=== PATIENT | female | born 1985 | race Hispanic/Latino ===

== ENCOUNTER 2018-02-14 21:46 | Emergency (ER) | payer OTHER ==
[2018-02-14] MEDS ORDERED: ACETAMINOPHEN EXTRA STRENGTH 500 MG TABLET ONE (22:11)
[2018-02-14] MEDS ORDERED: TETANUS/DIPHTHERIA TOXOID [ADULT] 0.5 ML VIAL IM ONE (22:36)
== END 2018-02-14 22:50 | disposition home or self-care (01) ==
LOC: EDH 21:46
DX: S61.232A Puncture wound without foreign body of right middle finger without damage to nail, initial encounter (principal); Y04.1XXA Assault by human bite, initial encounter; Y93.89 Activity, other specified; Y92.098 Other place in other non-institutional residence as the place of occurrence of the external cause; Y99.8 Other external cause status
CPT/HCPCS: 73130; 81025; 90471; 90714

== ENCOUNTER 2022-08-27 17:40 | Emergency (ER) | payer BC ==
[~2022-08-27] VITALS: Ht 170.2 cm; Wt 145.1 kg
[~2022-08-27 17:40] MED LIST: CLIN-141 PO; METF-444 PO; METO-296 PO; ONDA4TAB10 PO
[2022-08-27 18:18] LABS: BASOPHILS % (AUTO) 0.3 % (0.0-5.0); EOSINOPHILS % (AUTO) 1.2 % (0.0-8.0); HEMATOCRIT 42.4 % (36-48); LYMPHOCYTES % (AUTO) 24.8 % (21.0-51.0); MEAN CORPUSCULAR HEMOGLOBIN 30.2 pg (27.0-33.0); MEAN CORPUSCULAR HGB CONC 33.7 g/dL (32.0-36.0); MEAN CORPUSCULAR VOLUME 89.6 fL (79-99); MONOCYTES % (AUTO) 6.1 % (3.0-13.0); PLATELET COUNT (AUTO) 342 K/uL (130-400); RED BLOOD CELL COUNT(AUTO) 4.73 MIL/uL (4.00-5.50); RED CELL DISTRIBUTION WIDTH 12.1 % (11.0-15.5); WHITE BLOOD COUNT (AUTO) 18.8 K/uL (4.8-10.8)
[2022-08-27 18:28] LABS: CARBON DIOXIDE 29 mmol/L (21-32); CHLORIDE 95 mmol/L (101-111); CREATININE 0.9 mg/dL (0.5-1.5); GLOMERULAR FILTR. RATE CALC 74 mL/min (>60); GLUCOSE,RANDOM 284 mg/dL (70-105); POTASSIUM 3.8 mmol/L (3.5-5.1); SODIUM SERUM 132 mmol/L (136-145); UREA NITROGEN, BLOOD 8 mg/dL (7-18)
[2022-08-27 18:38] LABS: ALANINE AMINOTRANSFERASE 22 U/L (12-78); ALBUMIN 3.3 g/dL (3.5-5.0); ASPARTATE AMINOTRANSFERASE 16 U/L (10-37); CREATINE KINASE, TOTAL 42 U/L (21-232); MYOGLOBIN 21 ng/mL (10-92)
[2022-08-27 21:46] LABS: AMPHET/METH SCREEN,URINE NEGATIVE (NEGATIVE); BARBITURATE SCREEN, URINE NEGATIVE (NEGATIVE); BENZODIAZEPINES SCREEN,URINE NEGATIVE (NEGATIVE); CANNABINOID SCREEN,URINE POSITIVE (NEGATIVE); COCAINE SCREEN,URINE NEGATIVE (NEGATIVE); OPIATE SCREEN,URINE NEGATIVE (NEGATIVE); PHENCYCLIDINE SCREEN,URINE NEGATIVE (NEGATIVE)
[2022-08-27 21:48] LABS: HCG,QUALITATIVE URINE NEGATIVE (NEGATIVE)
[2022-08-27] MEDS ORDERED: IOHEXOL 350 MG/ML 100ML INFUS..BTL IV ONE (21:56)
[2022-08-27 22:00] LABS: APPEARANCE,URINE CLOUDY (CLEAR); BILIRUBIN,URINE NEGATIVE (NEGATIVE); COLOR,URINE LIGHT-YELLOW (YELLOW); GLUCOSE, URINE (UA) >=1000 mg/dL (NEGATIVE); KETONES,URINE NEGATIVE (NEGATIVE); LEUKOCYTE ESTERASE ,URINE 500 Leu/uL (NEGATIVE); NITRATE,URINE NEGATIVE (NEGATIVE); OCCULT BLOOD,URINE LARGE (NEGATIVE); PH,URINE 5.5 (5.0-8.0); PROTEIN,URINE NEGATIVE (NEGATIVE); UROBILINOGEN,URINE 0.2 mg/dL (0.2-1.0)
[2022-08-27 22:05] LABS: BACTERIA,URINE FEW /HPF (None Seen); MUCUS,URINE RARE LPF (None Seen); SQUAMOUS EPITHELIAL CELL,UR MOD /HPF (0-2); WBC,URINE 26-50 /HPF (0-1)
[2022-08-27] MEDS ORDERED: CEFTRIAXONE 1G VIAL IVP ONE (22:30)
[2022-08-28 02:08] VITALS: BP 135/88
== END 2022-08-28 02:10 | disposition left against medical advice (07) ==
LOC: EDH 17:40
DX: R20.0 Anesthesia of skin (principal); R53.1 Weakness; R11.2 Nausea with vomiting, unspecified; R42 Dizziness and giddiness; Z20.822 Contact with and (suspected) exposure to COVID-19; E11.9 Type 2 diabetes mellitus without complications; E78.00 Pure hypercholesterolemia, unspecified; I10 Essential (primary) hypertension; F17.200 Nicotine dependence, unspecified, uncomplicated; Z90.49 Acquired absence of other specified parts of digestive tract; Z79.84 Long term (current) use of oral hypoglycemic drugs; Z79.899 Other long term (current) drug therapy
CPT/HCPCS: 99285; 70450; 96374; 71045; 87635; 82550; 83874; 84484; 80053; 80305; 85025; 87088; 81001; 81025; 36415; 70496; 70498; 93005; C9803; J0696; Q9967

== ENCOUNTER 2023-09-14 03:47 | Emergency (ER) | payer BC ==
[~2023-09-14] VITALS: Ht 170.2 cm; Wt 127.9 kg
[~2023-09-14 03:47] MED LIST changes: +AMOX1TAB16 PO; +IBUP-1493 PO
[2023-09-14 04:10] VITALS: BP 143/80; PULSE 82; RESP 18; O2SAT 98
== END 2023-09-14 04:47 | disposition home or self-care (01) ==
LOC: EDH 03:47
DX: T16.2XXA Foreign body in left ear, initial encounter (principal); E11.9 Type 2 diabetes mellitus without complications; I10 Essential (primary) hypertension; Z79.1 Long term (current) use of non-steroidal anti-inflammatories (NSAID); Z79.84 Long term (current) use of oral hypoglycemic drugs; Z90.49 Acquired absence of other specified parts of digestive tract
CPT/HCPCS: 99281

== ENCOUNTER → 2024-11-01 | Emergency (ER) | payer SELFPAY ==
[~2024-11-01] VITALS: Ht 172.7 cm; Wt 101.8 kg
[~2024-11-01] MED LIST changes: +AZIT500T4 PO; +MELO-106 PO; +ONDA-243 PO; -ONDA4TAB10 PO; +PRED20TA3 PO
--- NOTE | 2024-11-01 20:36 | ERN ---
ED Note History of Present Illness Stated Complaint: NECK PAIN, SORE THROAT Chief Complaint: Multiple Complaints Time Seen by MD: 20:33 Dictation: This is a 38-year-old female who presented to the emergency room with complaints of sore throat, left ear pain. All this started a few days ago and no history of any drainage from the ear or bleeding from the ear. She does report some chills. No one else is sick in the family. No travel or new pets at home. No regular health care. Patient has not taken influenza shot Temperature 100.4 pulse 101 respirations 20 blood pressure 164/80 with a pulse oximetry of 98% on room air Chronic medical problems include diabetes mellitus and hypertension Allergies: Coded Allergies: No Known Allergies (Unverified Allergy, Unknown, 10/18/21) Home Meds Active Scripts Meloxicam (Meloxicam) 7.5 Mg Tablet, 7.5 MG PO DAILY for 7 Days, #7 TAB Prov:CORRY LUNDBERG MD 11/01/24 Prednisone (Prednisone) 20 Mg Tablet, 1 TAB PO AD for 6 Days, #14 TAB 0 Refills TAKE 1 TAB BY MOUTH THREE TIMES PER DAY X3 DAYS, THEN TAKE 1 TAB BY MOUTH TWICE A DAY X2 DAYS, THEN TAKE 1 TAB BY MOUTH ONCE A DAY X1 DAY. Prov:CORRY LUNDBERG MD 11/01/24 Azithromycin (Azithromycin) 500 Mg Tablet, 1 TAB PO DAILY for 5 Days, #5 TAB 0 Refills Prov:CORRY LUNDBERG MD 11/01/24 Ibuprofen (Motrin/Advil) 800 Mg Tab, 800 MG PO TID, #30 TAB Prov:MAX SAMANIEGO MD 09/19/22 Amoxicillin/Potassium Clav (Amox Tr-K Clv 875-125 mg Tab) 1 Each Tablet, 1 EACH PO BID, #20 TAB Prov:MAX SAMANIEGO MD 09/19/22 Metformin HCl (Metformin HCl) 500 Mg Tablet, 500 MG PO BID, #30 TAB 0 Refills Prov:EAN HERNÁNDEZ MD 10/18/21 Metoclopramide HCl (Reglan) 10 Mg Tablet, 10 MG PO TIDP, #20 TAB 0 Refills Prov:EAN HERNÁNDEZ MD 10/18/21 Ondansetron (Ondansetron Odt) 4 Mg Tab.rapdis, 4 MG PO Q6HPRN, #20 TAB 0 Refills Prov:EAN HERNÁNDEZ MD 10/18/21 Clindamycin HCl (Clindamycin HCl) 300 Mg Capsule, 1 CAP PO QID for 10 Days, #40 CAP 0 Refills Prov:EAN HERNÁNDEZ MD 10/18/21 Past Medical History Past Medical History: Diabetes-Type II, Hypertension Surgical History: Cholecystectomy, Family History: DM Social History: Smokers, Drugs (Smokes and vapes marijuana oils), Lives with family RN Note Reviewed/Agreed w/PFSH: Yes Review of System Dictation Constitutional: Negative for fever,chills, and weight loss Eyes: Negative for injury, pain,redness, and discharge ENT: Positive for left ear pain or swelling in front of the ear. Cardiovascular: Negative for chest pain, palpitations, and edema Respiratory: Negative for shortness of breath, cough, and wheezing, Abdomen/GI: Negative for abdominal pain, nausea, vomiting, diarrhea, and constipation Back: Negative for injury and pain : Negative for injury, bleeding and discharge MS/Extremity: Negative for injury and deformity Skin: Negative for rash, and discoloration Neuro: Negative for headache, weakness, numbness, tingling, and seizure Psych: Negative for suicide ideation, homicidal ideation, and hallucinations Initial Vital Sign VS Vital Signs Date Time Temp Pulse Resp B/P (MAP) Pulse Ox O2 Delivery O2 Flow Rate FiO2 11/01/24 20:28 100.4 101 20 164/80 97 Room Air 11/01/24 21:50 0 21 Physical Exam Dictation General: awake, alert, NAD obese female Head/Face: Normocephalic, atraumatic Eyes: PERRL, EOMI, vision at baseline ENT: oral cavity clear, TMs clear, no signs of infection dental cavities and caries, mild erythema of the posterior pharyngeal wall. Right ear exam normal except for some cerumen. Left ear mild erythema of the auditory canal. Mild preauricular swelling at the location of the parotid gland. Also superior neck small lymph nodes palpable. Left parotid gland appears mildly prominent Neck: Trachea midline, supple, no nuchal rigidity Cardiovascular: RRR, normal S1/S2, No MRGs, no JVD Respiratory: CTAB, no respiratory distress, No rales or wheezes Abdomen: Soft, non-tender, non-distended, normal bowel sounds, no guarding or rebound. Skin: Warm, dry, normal turgor, no rash MS/Extremity: Pulses equal, no cyanosis, neurovascular intact, FROM Neuro: COAx4, GCS 15, strength 5/5, CN 2-12 intact, normal cerebellar exam, normal gait, Psych: Normal behavior, mood, and affect normal Extremities-trace edema without any palpable cords, Homans sign is negative Results (Laboratory/Radiology) Laboratory/Radiology Laboratory Tests Test 11/01/24 22:30 Urine HCG, Qualitative NEGATIVE (NEGATIVE) Labs Reviewed?: Yes ED Course ED Course Orders Procedure Category Date Status Time ,Urine Test LAB 11/01/24 Complete 21:18 Ondansetron 4mg Inj PHA 11/01/24 Complete (Zofran 4mg Inj) 21:30 Ketorolac PHA 11/01/24 Complete Tromethamine 30mg/Ml 21:30 Acetaminophen 500mg PHA 11/01/24 Complete Tab (Tylenol 500mg T 21:30 Ceftriaxone 1g Vial PHA 11/01/24 Complete (Rocephine 1g Inj) 23:00 Current Medications Medications (Trade) Dose Ordered Sig/López Route PRN Reason Start Time Stop Time Status Last Admin Dose Admin Acetaminophen (TYLenol 500MG TAB) 1,000 mg ONCE ONCE PO 11/01/24 21:30 11/01/24 21:39 DC 11/01/24 21:43 Ceftriaxone Sodium (ROCEphine 1G INJ) 1 gm ONCE ONCE IVPB 11/01/24 23:00 11/01/24 23:01 DC 11/01/24 22:55 Ketorolac Tromethamine (toRADol) 30 mg ONCE ONCE IVP 11/01/24 21:30 11/01/24 21:31 DC 11/01/24 21:32 Ondansetron HCl (zoFRAN 4MG INJ) 4 mg ONCE ONCE IVP 11/01/24 21:30 11/01/24 21:31 DC 11/01/24 21:32 Vital Signs Date Time Temp Pulse Resp B/P (MAP) Pulse Ox O2 Delivery O2 Flow Rate FiO2 11/01/24 21:50 100.0 89 20 154/79 100 Room Air* 0 21 11/01/24 21:43 100.0 11/01/24 20:28 100.4 101 20 164/80 97 Room Air We will administer medications according to the patient's complaint. Once the results are available, will review and personally interpreted the labs to rule out any acute life-threatening emergency the trach require immediate intervention and treatment. I will then re-evaluate the patient after treatment and diagnostic exams have return to determine whether the patient requires any further testing, can safely be discharged home or need further admission to hospital for additional treatment and evaluation. 11:02 p.m. patient already feels better with the symptomatic treatment and feels her fever is already down. I informed her that we would give a dose of antibiotics before discharge and she needs to continue antibiotics as outpatient. Medical Decision Making MDM MDM: Differential diagnosis: Otitis externa, otitis media, parotitis, dental infection, pharyngitis Rationale: Tests considered and ordered secondary to shared decision making include: Previous outside records reviewed: Old ER visits. Risk of complication and/or morbidity or mortality of patient management: None Medications-Per medication reconciliation Need for hospitalization: Patient does not meet criteria for hospitalization. Need for emergency major/minor surgery: No There are no social concerns with this patient. Prescription drug management Prescriptions will include symptomatic care Patient's prior external medical records from other ER visits were reviewed by me as indicated. Prior testing and results from previous visits were reviewed. Prior tests were taken into account with medical decision making and resource utilization, independent historian/historians were used to obtain complete medical history. I independently interpreted the test that were performed, results were reviewed by me and considered findings on radiology if ordered. Medical management and examination interpretation discussions were had by me with other qualified healthcare professionals as indicated for the patient's care. Problem List Problem List: (1) Otitis externa (2) Parotitis not due to mumps (3) Dental cavities DX & DISP Disposition: Discharge Departure Impression: Primary Impression: Otitis externa Additional Impressions: Parotitis not due to mumps, Dental cavities Condition: Stable Scripts Meloxicam (Meloxicam) 7.5 Mg Tablet 7.5 MG PO DAILY for 7 Days, #7 TAB Prov: CORRY LUNDBERG MD 11/01/24 Prednisone (Prednisone) 20 Mg Tablet 1 TAB PO AD for 6 Days, #14 TAB 0 Refills TAKE 1 TAB BY MOUTH THREE TIMES PER DAY X3 DAYS, THEN TAKE 1 TAB BY MOUTH TWICE A DAY X2 DAYS, THEN TAKE 1 TAB BY MOUTH ONCE A DAY X1 DAY. Prov: CORRY LUNDBERG MD 11/01/24 Azithromycin (Azithromycin) 500 Mg Tablet 1 TAB PO DAILY for 5 Days, #5 TAB 0 Refills Prov: CORRY LUNDBERG MD 11/01/24 Additional Instructions: Patient and the caregiver have been informed of all the diagnostic tests and the imaging conducted during the today's visit to the emergency room and has verbalized understanding of the results I have personally reviewed and interpreted all diagnostic exams performed here in the ER today as well as the vital signs documented by the nursing staff. The patient is now being discharged to home and should follow up with the primary care physician or the specialist as directed by the ER staff. Follow-up with primary care provider in 1 to 2 days. Take medications as directed here in the emergency room. Okay to continue home medications unless otherwise discussed during your visit in the emergency room today. Return to your nearest emergency room if symptoms worsen or if there is no improvement. Call 911 if you need immediate assistance. Take Tylenol or Motrin [id number] as needed and if no contraindications are present. Increase oral hydration. A wound culture or urine culture was ordered here in the emergency room department please follow-up with primary care provider and advise them to get repeat ports from our facility. If you had any Yovani wrap/splints that were applied here, please do not remove them until you see your primary care or specialty. Referrals: SHAGGY SOOD MD (PCP) CORRY LUNDBERG MD Nov 01, 2024 20:36
[2024-11-01] MEDS: ondanSETRON 4MG INJ IVP ONE (21:32)
[2024-11-01] MEDS: ketOROlac 30MG VIAL (30MG/ML) IVP ONE (21:32)
[2024-11-01] MEDS: acetaMINOPHEN 500 MG TABLET PO ONE (21:43)
--- NOTE | 2024-11-01 21:59 | NUR ---
RN NOTIFIED ED DOCTOR OF SEPSIS PROTOCAL CALLED IN TRIAGE. PER PATIENT IS NOT SPETIC
[2024-11-01 22:55] VITALS: TEMP 98.9
[2024-11-01] MEDS: cefTRIAXone 1G VIAL IVPB ONE (22:55)
[2024-11-01 23:08] VITALS: BP 144/70; PULSE 92; RESP 20; TEMP 98.9; O2SAT 100
== END ==
LOC: EDH 20:26
DX: H60.92 Unspecified otitis externa, left ear (principal); K11.20 Sialoadenitis, unspecified; K02.9 Dental caries, unspecified; E11.9 Type 2 diabetes mellitus without complications; F12.90 Cannabis use, unspecified, uncomplicated; F17.290 Nicotine dependence, other tobacco product, uncomplicated; I10 Essential (primary) hypertension; Z79.1 Long term (current) use of non-steroidal anti-inflammatories (NSAID); Z79.84 Long term (current) use of oral hypoglycemic drugs; Z90.49 Acquired absence of other specified parts of digestive tract
CPT/HCPCS: 99284; 96374; 96375; 81025; J1885; J0696; J2405